=== PATIENT | female | born 1960 | race Caucasian/White ===

== ENCOUNTER 2019-07-10 18:21 | Emergency (ER) | payer OTHER ==
[~2019-07-10] VITALS: Ht 165.1 cm; Wt 72.6 kg
[2019-07-10] MEDS ORDERED: [UNRECOGNIZED DRUG - OTHER] (18:32)
[2019-07-10 20:33] LABS: HEMATOCRIT 38.2 % (37.0-47.0); HEMOGLOBIN 12.9 gm/dL (12.0-15.0); MCH 30.1 pg (26.0-34.0); MCHC 33.7 g/dL (28.0-37.0); MCV 89.4 fL (80.0-100.0); MPV 8.6 fl. (7.2-11.1); NUCLEATED RBCS 0 /100WBC; PLATELET COUNT* 221 thou/uL (150-400); RBC 4.28 mil/uL (4.20-5.00); RDW-CV 12.8 % (10.5-14.5); WBC 12.2 thou/uL (4.0-11.0)
[2019-07-10 20:45] LABS: CREATININE 0.8 mg/dL (0.6-1.3); POTASSIUM 3.8 mmol/L (3.5-5.1)
[2019-07-10 20:50] LABS: ALBUMIN 3.6 g/dL (3.4-5.0); TOTAL BILIRUBIN 0.4 mg/dL (<0.1-1.0); TOTAL PROTEIN 6.9 g/dL (6.4-8.2)
[2019-07-10 21:39] LABS: INFLUENZA A ANTIGEN Negative (Negative); INFLUENZA B ANTIGEN Negative (Negative)
[2019-07-10 22:05] LABS: URINE BILIRUBIN NEGATIVE (Negative); URINE BLOOD TRACE (Negative); URINE CLARITY CLEAR; URINE COLOR YELLOW; URINE GLUCOSE-RANDOM NEGATIVE (Negative); URINE KETONES TRACE (Negative); URINE LEUKOCYTES-REFLEX NEGATIVE (Negative); URINE NITRITE-REFLEX NEGATIVE (Negative); URINE PROTEIN NEGATIVE (Negative); URINE UROBILINOGEN 0.2 E.U./dl (0.2-1.0)
[2019-07-10 22:40] LABS: ABSOLUTE LYMPHOCYTES 0.1 thou/uL (0.8-5.3); ABSOLUTE MONOCYTES 0.2 thou/uL (0.0-1.2); ABSOLUTE NEUTROPHILS 11.8 thou/uL (1.6-8.1)
[2019-07-10 22:41] LABS: PLATELET ESTIMATE ADEQUATE
[2019-07-10] MEDS ORDERED: ZOFRAN ODT4 MG PO (23:47)
[2019-07-10] MEDS ORDERED: HYDROCODON-ACE1 EAC8 PO (23:47)
[2019-07-10 23:59] VITALS: BP 156/78
--- NOTE | 2019-07-12 12:45 | EKG ---
[place] [address] ELECTROCARDIOGRAM REPORT Name: BRANDINNEETU PAGAN Gulshan Room: [facility]#: [id number] Admission: 07/10/19 Attend Phys: Discharge: 07/10/19 Date of : 62 Report #: [id number] THIS REPORT FOR: //name// [facility] ED Test Date: 2019-07-10 Test Time: 18:59:16 Pat Name: NEETU NAPOLES Department: Room: Gender: F Customer Trainer: : 1960 Requested By: Garima Daniels Order Number: [id number] MD: Jason Cevallos Measurements Intervals [place] Rate: 87 P: 72 [place]: 155 QRS: 26 QRSD: 97 T: 21 QT: 390 QTc: 470 Interpretive Statements Sinus rhythm Baseline wander in lead(s) I,II,III,aVR,aVL No previous ECG available for comparison Electronically Signed On 07-12-2019 12:44:28 ASSISTANT TO THE CEO by Jason Cevallos [email or web address] <ELECTRONICALLY SIGNED> By: Jason Cevallos MD, [facility] 07/12/19 1244 [id number] 58 Jason Cevallos MD, FACC /EPI
== END 2019-07-10 23:59 | disposition still patient (30) ==
LOC: M.ERS 18:21
PROVIDERS: Personal Emergency Response Attendant
DX: R11.2 Nausea with vomiting, unspecified (principal); R10.12 Left upper quadrant pain; R19.7 Diarrhea, unspecified; Z87.442 Personal history of urinary calculi; Z90.710 Acquired absence of both cervix and uterus; Z90.49 Acquired absence of other specified parts of digestive tract; Z90.89 Acquired absence of other organs; Z88.5 Allergy status to narcotic agent; Z88.8 Allergy status to other drugs, medicaments and biological substances

== ENCOUNTER → 2021-03-12 | Outpatient (CLI) | payer OTHER ==
[~2021-03-12] MED LIST: HYDROCODON-ACE1 EAC8 PO; ZOFRAN ODT4 MG PO; [UNRECOGNIZED DRUG - OTHER]
== END ==
LOC: M.RAD 02-19 14:20
PROVIDERS: ATTEND Family Medicine
DX: Z12.31 Encounter for screening mammogram for malignant neoplasm of breast (principal)